=== PATIENT | male | born 1945 | race Caucasian/White ===

== ENCOUNTER 2017-08-16 19:13 | Emergency (ER) | payer MEDICARE ==
[~2017-08-16] VITALS: Ht 182.9 cm; Wt 104.3 kg
[2017-08-16] MEDS ORDERED: PLAVIX (19:30)
[2017-08-16] MEDS ORDERED: AGGRENOX (19:30)
[2017-08-16] MEDS ORDERED: LIPITOR (19:30)
[2017-08-16] MEDS ORDERED: MELOXICAM (19:31)
[2017-08-16] MEDS ORDERED: ALBUTEROL (19:31)
[2017-08-16] MEDS ORDERED: SYMBICORT (19:31)
[2017-08-16] MEDS ORDERED: MOBIC (19:31)
[2017-08-16] MEDS ORDERED: AMLODIPINE (19:32)
[2017-08-16] MEDS ORDERED: KEFLEX500 M1 PO (19:55)
[2017-08-16 20:42] VITALS: BP 128/78
== END 2017-08-16 20:43 | disposition home or self-care (01) ==
LOC: M.ERS 19:13
DX: S61.011A Laceration without foreign body of right thumb without damage to nail, initial encounter (principal); W25.XXXA Contact with sharp glass, initial encounter; Y93.89 Activity, other specified; Y92.89 Other specified places as the place of occurrence of the external cause; Y99.8 Other external cause status